=== PATIENT | male | born 1970 | race Caucasian/White ===

== ENCOUNTER 2019-09-10 01:41 | Emergency (ER) | payer OTHER ==
[~2019-09-10] VITALS: Ht 185.4 cm; Wt 136.2 kg
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
[2019-09-10 02:10] LABS: BASO # 0.1 x10^3/uL (0.0-0.2); BASO % 1 % (0-3); EOS # 0.1 x10^3/uL (0.0-0.7); EOS % 1 % (0-3); HEMATOCRIT 42.2 % (39.0-53.0); HEMOGLOBIN 14.4 g/dL (13.0-17.5); LYMPH % 32 % (24-48); MEAN CORPUSCULAR HEMOGLOBIN 29 pg (25-35); MEAN CORPUSCULAR HGB CONC 34 g/dL (31-37); MEAN CORPUSCULAR VOLUME 85 fL (79-100); MONO # 0.6 x10^3/uL (0.0-1.1); MONO % 6 % (0-9); NEUT # 5.6 x10^3/uL (1.8-7.7); NEUT % 60 % (31-73); PLATELET COUNT 166 x10^3/uL (140-400); RED BLOOD COUNT 4.95 x10^6/uL (4.30-5.70); RED CELL DISTRIBUTION WIDTH 13.4 % (11.5-14.5); WHITE BLOOD COUNT 9.3 x10^3/uL (4.0-11.0)
[2019-09-10 02:19] LABS: CALCIUM 8.9 mg/dL (8.5-10.1); CREATININE 1.4 mg/dL (0.7-1.3); GFR 53.9; POTASSIUM 3.8 mmol/L (3.5-5.1)
[2019-09-10 02:24] LABS: ALBUMIN 3.6 g/dL (3.4-5.0); ALBUMIN/GLOBULIN RATIO 0.9 (1.0-1.7); TOTAL BILIRUBIN 0.1 mg/dL (0.2-1.0); TOTAL PROTEIN 7.4 g/dL (6.4-8.2)
--- NOTE | 2019-09-10 02:39 | RAD ---
AP portable chest radiograph 09/10/2019 Clinical History: Chest pain. An AP erect portable digital radiograph of the chest was obtained. No previous studies are available for comparison. The cardiac and mediastinal silhouettes are within normal limits in size and configuration. No acute pulmonary infiltrate is seen. No pleural effusion or pneumothorax is noted. The osseous structures are grossly intact. IMPRESSION: No acute abnormality is seen. Electronically signed by: Guzman Larkin MD (09/10/2019 2:37 AM) [id number]
[2019-09-10] MEDS ORDERED: ASPIRIN CHEWABLE 81 MG TABLET. PO ONE (02:45)
[2019-09-10] MEDS ORDERED: IOHEXOL 350 MG/ML 100 ML VIAL. IV ONE (03:30)
[2019-09-10] MEDS ORDERED: CONTRAST GIVEN. MC PRN (03:45)
--- NOTE | 2019-09-10 04:11 | RAD ---
CTA of the chest with contrast 09/10/2019 CLINICAL HISTORY: Chest pain. Concern for possible aortic dissection. TECHNIQUE: Unenhanced images administration of 70 cc of Omnipaque 350, contiguous, 0.625 mm axial sections were obtained through the chest and upper abdomen. Multiplanar 3-D MIP reconstructed images were obtained. One or more of the following individualized dose reduction techniques were utilized for this study: 1. Automated exposure control. 2. Adjustment of the mA and/or kV according to patient size. 3. Use of iterative reconstruction technique. FINDINGS: Comparison is made to a chest radiograph performed earlier today. The heart is normal in size. The thoracic aorta is mildly tortuous but tapers normally. Mild atherosclerotic calcification of the thoracic aorta is seen. No aneurysm is seen. No intimal flap is noted. There is no evidence of a thoracic aortic dissection. The origins of the brachiocephalic, left common carotid and left subclavian arteries from the thoracic aortic arch are within normal limits. No filling defect is seen within the branches of either pulmonary artery. There is no CT evidence of pulmonary embolism. Minimal dependent subsegmental atelectasis is seen involving both lungs. A linear band of subsegmental atelectasis is seen involving the left lower lobe. No area of consolidation is seen. No pneumothorax or pleural effusion is noted. Images through the upper abdomen demonstrate decreased attenuation of the liver parenchyma consistent with fatty infiltration. Degenerative changes are seen involving the thoracic spine. IMPRESSION: No acute abnormality is seen. Electronically signed by: Guzman Larkin MD (09/10/2019 4:08 AM) [id number]
[2019-09-10] MEDS ORDERED: HYDR-3164 PO (04:22)
[2019-09-10] MEDS ORDERED: NAPR-683 PO (04:22)
[2019-09-10] MEDS ORDERED: KETOROLAC 15 MG/ML VIAL. IVP ONE (04:30)
[2019-09-10 04:46] VITALS: BP 122/75
--- NOTE | 2019-09-11 07:55 | EKG ---
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
== END 2019-09-10 04:50 | disposition home or self-care (01) ==
LOC: ER 01:41
DX: R07.89 Other chest pain (principal); R06.02 Shortness of breath
CPT/HCPCS: 36415; 71045; 71275; 80053; 84484; 85025; 93005; 96374; 99285; J1885; Q9967